=== PATIENT | male | born 1935 | race Caucasian/White ===

== ENCOUNTER 2017-08-07 08:59 | Emergency (ER) | payer MEDICARE, BC ==
[~2017-08-07] VITALS: Ht 165.1 cm; Wt 73.6 kg
[~2017-08-07 08:59] MED LIST: CINN500C16 PO; CYAN500T4 PO; OMEG-44 PO; PANT-47 PO; SIMV20TA5 PO
[2017-08-07 09:00] VITALS: BP 115/58
== END 2017-08-07 11:08 | disposition home or self-care (01) ==
LOC: ER 08:59
DX: S09.90XA Unspecified injury of head, initial encounter (principal); M25.512 Pain in left shoulder; J32.0 Chronic maxillary sinusitis; E78.00 Pure hypercholesterolemia, unspecified; I10 Essential (primary) hypertension; G89.29 Other chronic pain; W01.0XXA Fall on same level from slipping, tripping and stumbling without subsequent striking against object, initial encounter; Y93.89 Activity, other specified; Y92.89 Other specified places as the place of occurrence of the external cause; Y99.8 Other external cause status
CPT/HCPCS: 70450; 73030; 99284; A4565; A6449